=== PATIENT | female | born 1980 | race Two or more races ===

== ENCOUNTER 2017-11-30 17:00 | Emergency (ER) | payer SELFPAY ==
[2017-11-30 17:10] VITALS: BP 112/78; PULSE 74; TEMP 98.7; BMI 18.9
--- NOTE | 2017-11-30 17:38 | PDOC ---
History of Present Illness - General Chief Complaint: Wound Stated Complaint: WOUND CHECK Time Seen by Provider: 11/30/17 17:29 History Source: Patient Exam Limitations: No Limitations - History of Present Illness Initial Comments: 11/30/17 17:32 37-year-old female medical history here today complaining of a burning sensation to her scalp. Patient states she was seen at a hair salon 5 days ago at which time she believes that she was burned by the chemical use in her hair. She has since had some scalp irritation and bubbling or bumps over the frontal portion of her scalp and some over the upper forehead near the hairline she's also complaining of a headache. No fevers or chills no other lesions in her face no sloughing of the skin no difficulty breathing tongue or lip swelling similar to any ALLERGIC reaction. No other current complaints Past History - Past Medical History Allergies/Adverse Reactions: Allergies Allergy/AdvReac Type Severity Reaction Status Date / Time No Known Allergies Allergy Verified 11/30/17 17:02 Home Medications: Ambulatory Orders NK [No Known Home Medication] 11/30/17 COPD: No - Suicide/Smoking/Psychosocial Hx Smoking History: Never smoked Have you smoked in the past 12 months: No Information on smoking cessation initiated: No Hx Alcohol Use: No Drug/Substance Use Hx: No Review of Systems - Review of Systems Constitutional: No: Chills, Diaphoresis HEENTM: No: Eye Pain, Blurred Vision Respiratory: No: Cough Integumentary: Yes: Rash Neurological: Yes: Headache All Other Systems: Reviewed and Negative *Physical Exam - Vital Signs Last Vital Signs Temp Pulse Resp BP Pulse Ox 98.7 F 74 18 112/78 100 11/30/17 17:00 11/30/17 17:00 11/30/17 17:00 11/30/17 17:00 11/30/17 17:00 - Physical Exam General Appearance: Yes: Nourished HEENT: positive: Normal ENT Inspection Respiratory/Chest: positive: Lungs Clear, Normal Breath Sounds Cardiovascular: positive: Regular Rhythm, Regular Rate Integumentary: positive: Normal Color, Dry, Warm, Other (very mild dermatitis right temporal frontal forehead/ hair line. linear superifical scratch. no erythema. no moisture. no exudate. no vesicles or papules.) Neurologic: positive: wraparound facilitator II-XII NML intact Medical Decision Making - Medical Decision Making 11/30/17 17:35 37 yo F with dermatitis from hair dye, appears to be resolving. no blistering or erythema. no drainage. minimal irritation. plan dc home reccomend bacitracin , told not to scratch area. avoid sun. *DC/Admit/Observation/Transfer Diagnosis at time of Disposition: Dermatitis - Discharge Dispostion Disposition: HOME Condition at time of disposition: Improved Decision to Admit order: No - Referrals - Patient Instructions Printed Discharge Instructions: Contact Dermatitis, DI for Contact Dermatitis Additional Instructions: apply bacitracin to area of scalp irritated. avoid scratching and sun exposure. return for worsenign redness. or swelling or any concerns - Post Discharge Activity
== END 2017-11-30 17:44 | disposition home or self-care (01) ==
LOC: FER 17:00
DX: L30.9 Dermatitis, unspecified (principal)
CPT/HCPCS: 99283-25